=== PATIENT | female | born 1930 | race Caucasian/White ===

== ENCOUNTER 2016-12-22 15:36 | Inpatient (IN) ==
[2016-12-22] MEDS ORDERED: ZOFRAN IV ONE (15:55)
[2016-12-22] MEDS ORDERED: NS 1,000 ML IV ONE (15:55)
[2016-12-22 16:13] LABS: BLOOD TYPE ARTERIAL; DRAW SITE R RADIAL; METHB 1.2 % (0.0-1.5); O2(CT) 16.4 mL/dL (15.0-23.0); PCO2(98.6) 27 mmHg (35-45); PO2(98.6) 76 mmHg (60-100); SAMPLE BLOOD; SAO2 96.2 % (95.0-100.0); THB 12.4 g/dL (11.5-17.4)
[2016-12-22 16:15] LABS: ALLEN TEST YES; MODALITY ROOM AIR
--- NOTE | 2016-12-22 16:16 | EKG Report ---
Test Performed on : 12/22/2016 3:59:15 PM Test Reason : AMS Blood Pressure : / mmHG Vent. Rate : 127 BPM Atrial Rate : 127 BPM P-R Int : 146 ms QRS Dur : 074 ms QT Int : 288 ms P-R-T Axes : 054 263 067 degrees QTc Int : 418 ms Sinus tachycardia. Right superior axis deviation Anterior infarct , age undetermined Abnormal ECG When compared with ECG of 31-DEC-2014 07:49, premature ventricular complexes. are no longer present Vent. rate has increased BY 70 BPM Nonspecific T wave abnormality no longer evident in Inferior leads Nonspecific T wave abnormality no longer evident in Anterolateral leads Unconfirmed Result
--- NOTE | 2016-12-22 16:21 | PROVIDER DOCUMENTATION ---
HPI-Abdominal Pain/GI Problem - General Chief Complaint: Diarrhea Stated Complaint: diarrhea Time Seen by Provider: 12/22/16 15:52 Source: family, EMS, RN notes reviewed Unable to obtain history due to:: altered Allergies/Adverse Reactions: Patient Allergies Allergy/AdvReac Type Severity Reaction Status Date / Time Penicillins Allergy NAUSEA/VOMI Verified 12/31/14 06:52 TING propoxyphene napsylate * Allergy NAUSEA/VOMI Verified 12/31/14 06:52 [From Luis-N] TING Home Medications: Home Medication List Medication Instructions Recorded Confirmed Last Taken Type Amlodipine Besylate [Norvasc] 5 mg PO PCS 10/21/14 12/31/14 12/30/14 21:00 History Calcium 500 mg PO DAILY 10/21/14 12/31/14 12/30/14 14:00 History Furosemide [Lasix] 20 mg PO DAILY 10/21/14 12/31/14 12/30/14 14:00 History Hydrocodone/Acetaminophen [Lortab 1 each PO DAILY 10/21/14 12/31/14 Unknown History 5-325 mg Tablet] Levothyroxine [Synthroid] 100 microgm PO DAILY 10/21/14 12/31/14 12/30/14 05:30 History Metoprolol [Lopressor] 50 mg PO DAILY 10/21/14 12/31/14 12/30/14 08:00 History Potassium Chloride E.r. [Klor-Con] 20 meq PO DAILY 10/21/14 12/31/14 12/30/14 14 :00 History Acetaminophen [Tylenol] 1,000 mg PO Q8H #0 tablet 01/03/15 Unknown Rx Docusate Sodium [Colace] 200 mg PO QHS #0 capsule 01/03/15 Unknown Rx Ferrous Sulfate 325 mg PO WBREAKFAST #0 tablet 01/03/15 Unknown Rx Hydrocodone/Acetaminophen [Taos 1 each PO 4XDAY PRN #10 tablet 01/03/15 Unknown Rx 5-325 Tablet] Magnesium Hydroxide [Milk of 30 ml PO DAILY PRN PRN #0 udc 01/03/15 Unknown Rx Magnesia] Ondansetron [Ondansetron Odt] 4 mg PO 4XDAY PRN #0 tab.rapdis 01/03/15 Unknown Rx - History of Present Illness-ABD Nature of Presenting Problems: patient is a 86 y/o F that presents to the ER with generalized abdominal pain, fever, and diarrhea(at least 5 times a day) x 4 days. patient's daughter reports patient not as verbal as normal. No vomiting or cough. Abdominal Pain Onset Location: reports: generalized abdomen Quality of Pain: reports: aching Severity in ED: reports: moderate, severe Onset/Duration: reports: unsure, other (several days) Timing: reports: still present, constant Activities at Onset: reports: none Modifying Factors: improves with: nothing Associated Symptoms: reports: diarrhea, fever/chills. denies: back/neck pain, chest pain, constipation, EENT symptoms, genitourinary problems, shortness of breath, vomiting Similar Symptoms Previously?: No Recently seen or treated by another doctor?: No Review of Systems - Adult - REVIEW OF SYSTEMS - ADULT ROS:: ROS per family Constitutional: reports: fever. denies: chills Gastrointestinal: reports: abdominal pain, diarrhea. denies: hematemesis, rectal bleeding, vomiting All Other Systems: Reviewed and Negative Past History - Adult - PAST MEDICAL HISTORY-ADULT Review of Records: reports: Old Records Reviewed, Nursing Assessment Review, Medications Reviewed Cardiovascular: reports: HTN Endocrine/Immune: reports: thyroid disorder (hypo) - PRIOR SURGERIES/PROCEDURES Surgical/Procedure History: reports: appendectomy, hysterectomy, back/neck - IMMUNIZATION STATUS Childhood Immunizations: See Nurse Assessment Flu Vaccine: See Nurse Assessment - FAMILY HISTORY Family History: reviewed, not pertinent - SOCIAL HISTORY Smoking: non-smoker Living Situation: care facility Physical Exam-General - PHYSICAL EXAM-ADULT Initial Vital Signs Reviewed: Yes - CONSTITUTIONAL General Appearance: moderate distress, obtunded - EYES Eyes: PERRL/EOMI, pink conjunctivae - HEAD, EARS, NOSE, MOUTH & THROAT HENMT: normocephalic/atraumatic, normal ENT inspection, other (dry oral mucosa) - RESPIRATORY Respiratory: lungs clear, normal breath sounds, no respiratory distress, no accessory muscle use - CARDIOVASCULAR Cardiovascular: no gallop, no murmur, tachycardia - GASTROINTESTINAL (ABDOMEN) Abdominal Exam: no organomegaly, no pulsatile mass, tenderness (generalized) - MUSCULOSKELETAL Extremity: no pedal edema, normal capillary refill, pelvis stable - SKIN Integumentary: warm (to touch). negative: ecchymosis, erythema - PSYCHIATRIC Psych/Mental Status: other (altered, non verbal) Progress - PLAN OF CARE/RESULTS Progress/Plan/Lab Results: plan of care-labs, meds, xray, head ct scan. daughter reports patient is DNR Vital Signs Temp Pulse Resp BP Pulse Ox 12/22/16 15:40 102.0 F H 127 H 24 123/66 97 Penicillins Allergy (Verified 12/31/14 06:52) NAUSEA/VOMITING propoxyphene napsylate * [From Darvocet-N] Allergy (Verified 12/31/14 06:52) NAUSEA/VOMITING Amlodipine Besylate [Norvasc] 5 mg PO PCS 10/21/14 Calcium 500 mg PO DAILY 10/21/14 Furosemide [Lasix] 20 mg PO DAILY 10/21/14 Hydrocodone/Acetaminophen [Lortab 5-325 mg Tablet] 1 each PO DAILY 10/21/14 Levothyroxine [Synthroid] 100 microgm PO DAILY 10/21/14 Metoprolol [Lopressor] 50 mg PO DAILY 10/21/14 Potassium Chloride E.r. [Klor-Con] 20 meq PO DAILY 10/21/14 Acetaminophen [Tylenol] 1,000 mg PO Q8H #0 tablet 01/03/15 Docusate Sodium [Colace] 200 mg PO QHS #0 capsule 01/03/15 Ferrous Sulfate 325 mg PO WBREAKFAST #0 tablet 01/03/15 Hydrocodone/Acetaminophen [Taos 5-325 Tablet] 1 each PO 4XDAY PRN #10 tablet Magnesium Hydroxide [Milk of Magnesia] 30 ml PO DAILY PRN PRN #0 udc 01/03/15 Ondansetron [Ondansetron Odt] 4 mg PO 4XDAY PRN #0 tab.rapdis 01/03/15 Laboratory 12/22/16 12/22/16 12/22/16 17:10 16:50 16:05 PT 14.8 INR 1.13 APTT (Factor Assay) 31.0 Specimen Type Sample Site pH pCO2 pO2 HCO3 Base Excess Oxyhemoglobin ABG O2 Sat (Calculated) ABG O2 Saturation ABG Carboxyhemoglobin ABG Methemoglobin Fazal Test A-a O2 Difference Total Hemoglobin Lactate Blood Gas Modality FiO2 % POC Glucose 114 H Magnesium Urine Source CATH Urine Opiates Screen Ur Oxycodone Screen Urine Methadone Screen Ur Barbituates Screen Ur Tricyclics Screen Ur Phencyclidine Scrn Ur Amphetamines Screen U Methamphetamines Scrn Urine MDMA Screen U Benzodiazepines Scrn Urine Cocaine Screen U Cannabinoids Screen 12/22/16 12/22/16 12/22/16 15:54 15:45 13:15 PT INR APTT (Factor Assay) Specimen Type ARTERIAL Sample Site R RADIAL pH 7.50 H pCO2 27 L pO2 76 HCO3 24.1 Base Excess -1.0 Oxyhemoglobin 94.0 L ABG O2 Sat (Calculated) 16.4 ABG O2 Saturation 96.2 ABG Carboxyhemoglobin 1.20 ABG Methemoglobin 1.2 Fazal Test YES A-a O2 Difference 40.0 Total Hemoglobin 12.4 Lactate 2.50 H Blood Gas Modality ROOM AIR FiO2 % 21.0 POC Glucose Magnesium 2.2 Urine Source Urine Opiates Screen NONE DETECTED Ur Oxycodone Screen NONE DETECTED Urine Methadone Screen NONE DETECTED Ur Barbituates Screen NONE DETECTED Ur Tricyclics Screen NONE DETECTED Ur Phencyclidine Scrn NONE DETECTED Ur Amphetamines Screen NONE DETECTED U Methamphetamines Scrn NONE DETECTED Urine MDMA Screen NONE DETECTED U Benzodiazepines Scrn NONE DETECTED Urine Cocaine Screen NONE DETECTED U Cannabinoids Screen NONE DETECTED Orders Category Date Time Status Cardiac Monitoring DIRECTED Care 12/22/16 15:54 Active Finger Stick Blood Sugar (ED) DIRECTED Care 12/22/16 15:54 Active Oxygen Therapy- ED Nursing DIRECTED Care 12/22/16 15:54 Active Saline Loc NOW Care 12/22/16 15:[address] ABD/PELVIS W/ IV CONT ONLY [CT] Stat Exams 12/22/16 17:44 Ordered HEAD W/O CONTRAST [CT] Stat Exams 12/22/16 15:55 Draft flat [FLAT/UPRIGHT ABD/1 VIEW CHEST] [RAD] Stat Exams 12/22/16 16:03 Draft ABG [RESP] Routine Lab 12/22/16 15:45 Completed BLOOD CULTURE [BLDCUL] Stat Lab 12/22/16 15:56 Ordered CBC WITH ELECTRONIC DIFF [HEME] Stat Lab 12/22/16 17:10 Results CK PROFILE [SP CHEM] Stat Lab 12/22/16 17:10 Received COMPREHENSIVE METABOLIC PANEL [CHEM] Stat Lab 12/22/16 17:10 Received LACTATE, PLASMA [CHEM] Stat Lab 12/22/16 17:10 Received MAGNESIUM [CHEM] Stat Lab 12/22/16 13:[address]IME WITH INR [address] [COAG] Stat Lab 12/22/16 17:[address] [COAG] Stat Lab 12/22/16 17:10 Completed TROPONIN T Stat Lab 12/22/16 17:10 Received URINALYSIS W/POSS RFLX CULT [URINALYSIS] Stat Lab 12/22/16 16:50 Results URINE DRUG SCREEN PL Routine Lab 12/22/16 15:54 Completed 0.9% Sodium Chloride Inj [Ns] 1,000 ml Med 12/22/16 15:55 Discontinued IV 999 mls/hr Acetaminophen [Tylenol] Med 12/22/16 16:53 Discontinued 650 mg .ROUTE .STK-MED ONE Acetaminophen [Tylenol] Med 12/22/16 17:06 Discontinued 650 mg FL NOW ONE Levofloxacin 500 mg/D5w [Levaquin 500 mg/D5w] 100 ml Med 12/22/16 17:43 Active IV NOW Metronidazole 500 mg/Ns [Flagyl 500 mg/Ns] 100 ml Med 12/22/16 17:43 Active IV NOW Ondansetron [Zofran] Med 12/22/16 15:55 Discontinued 4 mg IV NOW ONE Pulse Oximetry Stat Oth 12/22/16 15:54 Active EKG [EKG] Stat Ther 12/22/16 15:54 Draft - EKG 1 Time of EKG reading by physician:: 15:59 EKG Read and Signed by:: Ramesh Gudino EKG Interpretation (*Must complete 3 of following elements*): Abnormal Rate: 127 Rhythm: Sinus tachycardia [place]: right FL Interval: normal ST Wave: non-specific ST changes - XRAY 1 XRAY Study: Chest, Abdomen Impression: Abnormal XRAY Interpretation: LG AMT OF STOOL IN RECTUM - CT/MRI 1 CT Study: Head Impression: Abnormal CT Results: ENCEPHALOMALACIA OLD INFARCT, WHITE MATTER DZ - CONSULTS/PCP/HOSPITALIST Notification #1 *Consult/PCP/Hospitalist*: ( credit control administrator for hospitalist) Time Discussed: 17:42 Reason/Comments: ct abd/pelv, levaquin and flagyl, Consult Disposition: Admit Departure - Departure Time of Disposition Order: 17:46 DIAGNOSIS: Abdominal pain Qualifiers: Abdominal location: generalized Qualified Code(s): R10.84 - Generalized abdominal pain Diarrhea Qualifiers: Diarrhea type: presumed infectious Qualified Code(s): A09 - Infectious gastroenteritis and colitis, unspecified Fever Qualifiers: Fever type: due to other condition Qualified Code(s): R50.81 - Fever presenting with conditions classified elsewhere Sepsis Qualifiers: Sepsis type: sepsis due to unspecified organism Qualified Code(s): A41.9 - Sepsis, unspecified organism Disposition: ADMITTED INPATIENT 09 Certified Medical Emergency: Emergent Condition: Stable Referrals: Andrea Mcmillan [Primary Care Provider] - - Critical Care Note Total Time (mins): 35 Critical Care Statement: This patient required my direct personal management to treat or rule out processes, the absence of which, could potentiallly result in sudden, clinically significant life or limb threatening deterioration. Attestation - Scribe Verification/Attestation Scribe:: Chas Weaver Acting as Scribe for:: Ramesh Gudino Scribe documention review:: This chart was documented by a scribe and accurately reflects the service the provider performed and the decisions made by the provider. Physician Attestation - Physician Attestation I, the provider, attest to the following statement:: Ramesh Gudino Physician documentation Attestation:: This documentation recorded by the scribe accurately reflects the service I personally performed and the decisions made by me.
[2016-12-22] MEDS ORDERED: TYLENOL ONE (16:53)
--- NOTE | 2016-12-22 16:55 | Diag Imaging Result Document ---
PROCEDURE NAME: FLAT/UPRIGHT ABD/1 VIEW CHEST - 12/22/2016 ACUTE ABDOMINAL SERIES: INDICATION: Abdomen pain with fever. COMPARISON: 12/31/2014. FINDINGS: There has been a suboptimal inspiratory result. The pulmonary vasculature is not congested. Lung volumes are reduced. No acute infiltrates or effusions are identified. There is no pneumothorax. There is multilevel vertebroplasty. No free air beneath hemidiaphragm. Supine and erect views of the abdomen reveal a large amount of fecal material within the rectum. No bowel distention is identified. No mass effect. There is a left proximal femoral screw. IMPRESSION: Large amount of fecal material within the rectum. No evidence for obstruction.
[2016-12-22] MEDS ORDERED: TYLENOL PR ONE (17:06)
--- NOTE | 2016-12-22 17:14 | Diag Imaging Result Document ---
PROCEDURE NAME: HEAD W/O CONTRAST - 12/22/[address] SCAN OF THE BRAIN: INDICATION: Altered mental status. History of TIAs. Weakness. FINDINGS: There is marked cerebral atrophy. There is extensive deep white matter hypodensity within the left frontal white matter. There is focal encephalomalacia within the right parietotemporal lobe consistent with old infarct. There is an old lacunar infarct within the left basal ganglia. There is no evidence for acute infarct or hemorrhage. Vascular calcifications are noted. IMPRESSION: 1. Large area of white matter disease, left frontal lobe. 2. Focal encephalomalacia consistent with old infarct, right temporoparietooccipital region. Old left lacunar infarct. No acute infarct or hemorrhage is appreciated.
[2016-12-22] MEDS ORDERED: LEVAQUIN 500 MG/D5W 100 ML IV ONE (17:43)
[2016-12-22] MEDS ORDERED: FLAGYL 500 MG/NS 100 ML IV ONE (17:43)
[2016-12-22 17:44] LABS: UR AMPHETAMINES QUAL NONE DETECTED (NONE DETECT); UR BARBITUATES QUAL NONE DETECTED (NONE DETECT); UR BENZODIAZEPIN QUAL NONE DETECTED (NONE DETECT); UR CANNABINOIDS QUAL NONE DETECTED (NONE DETECT); UR COCAINE QUAL NONE DETECTED (NONE DETECT); UR MDMA QUAL NONE DETECTED (NONE DETECT); UR METHADONE QUAL NONE DETECTED (NONE DETECT); UR METHAMPHETAMINE QUAL NONE DETECTED (NONE DETECT); UR OPIATES QUAL NONE DETECTED (NONE DETECT); UR OXYCODONE QUAL NONE DETECTED (NONE DETECT); UR PCP QUAL NONE DETECTED (NONE DETECT); UR TCA QUAL NONE DETECTED (NONE DETECT)
[2016-12-22 17:45] LABS: INR 1.13 (0.86-1.15); PROTIME 14.8 Seconds (12.1-15.5)
[2016-12-22 17:50] LABS: BASO% 0.2 % (0.0-0.8); HEMATOCRIT 35.7 % (37.0-47.0); HEMOGLOBIN 12.4 g/dL (12.0-16.0); IMM GRAN# 0.27 X1000 (0.0-0.04); IMM GRAN% 1.6 % (0.0-0.5); LYMPH# 0.62 X1000 (1.2-3.4); LYMPH% 3.6 % (20.5-51.1); MANUAL DIFF NEEDED? YES; MCH 33.5 PG (27-31); MCHC 34.7 g/dL (33-37); MCV 96.5 FL (81-99); MONO# 3.82 X1000 (0.11-0.59); MONO% 22.3 % (1.7-9.3); MPV 11.5 FL (7.4-10.4); NEUT% 72.3 % (42.2-75.2); PLT 208 X1000 (130-400)
[2016-12-22 17:56] LABS: CLARITY VERY CLOUDY (CLEAR); COLOR AMBER; GLUCOSE URINE NEGATIVE (NEGATIVE); URINE EPITHELIAL CELLS <10 /HPF (<10); URINE SOURCE CLEAN CATCH; URINE WBC <10 /HPF (<10)
[2016-12-22 17:57] LABS: BILIRUBIN URINE 2+ (NEGATIVE); BLOOD URINE NEGATIVE (NEGATIVE); LEUKOCYTES URINE TRACE (NEGATIVE); NITRITE URINE NEGATIVE (NEGATIVE); PROTEIN URINE TRACE mg/dL (NEGATIVE); SP GRAVITY URINE 1.015; URINE CULTURE PL NEEDED? YES; UROBILINOGEN URINE 2+(4 mg/dL)
[2016-12-22 18:02] LABS: BANDS 5 % (0-1); LYMPHS 10 % (21-51); MONO 11 % (1-9)
[2016-12-22 18:03] LABS: ALBUMIN 3.2 g/dL (3.5-5.0); CALCIUM 9.1 mg/dL (8.8-10.2); TOTAL BILIRUBIN 0.6 mg/dL (0.20-1.00); TOTAL PROTEIN 5.9 g/dL (6.3-8.3)
[2016-12-22] MEDS ORDERED: NS 1,000 ML IV SCH (18:15)
--- NOTE | 2016-12-22 20:47 | HISTORY AND PHYSICAL ---
CHIEF COMPLAINT: Abdominal pain, nausea, vomiting, altered mentation. HISTORY OF PRESENT ILLNESS: This is an 86-year-old female with history of dementia who presents from a senior care with abdominal complaints and diarrhea. She has had that off and on for the last week. She had fever reportedly up to 102, abdominal pain and her mentation today is worse. There has been no vomiting, no cough but she has had overall poor p.o. intake. Workup in the ER reveals acute kidney injury, leukocytosis, possible fecal impaction and evidence of septicemia. The patient is only minimally responsive and has just tenderness to palpation diffusely. In any case patient is admitted for abdominal pain, fever, possible colitis versus diverticulitis versus proctitis. PAST MEDICAL HISTORY: 1. Dementia. 2. Iron-deficiency anemia. 3. Hypothyroidism. 4. Hypertension. No evidence of atrial fibrillation. I think Dr. Mccormick is her regular doctor. 5. CHF. 6. Osteoporosis. 7. Compression fractures. PAST SURGICAL HISTORY: 1. Hysterectomy in 1956. 2. Oophorectomy in 1969. 3. Hemorrhoidectomy in 1970. 4. Fracture of right shoulder with multiple kyphoplasties. 5. Reported appendectomy. ALLERGIES: Penicillin, amitriptyline, prednisone, sulfa, Levaquin, Darvocet and Lortab. SOCIAL HISTORY: She is a retired industrial designer. She is a senior care resident. No smoking. No alcohol. REVIEW OF SYSTEMS: Otherwise negative x10 point review of systems. PHYSICAL EXAMINATION: VITAL SIGNS: Blood pressure 123/66, heart rate 120, respiratory rate 24, temp 102 degrees, saturation 97% on room air. GENERAL: A well-developed female, appears stated age, in mild distress. HEENT: Pupils equal, round, reactive to light. Extraocular movements are intact. Ear, nose and throat examination showed moist mucous membranes. NECK: Supple. CARDIOVASCULAR: Tachy. PULMONARY: Clear to auscultation anteriorly. GASTROINTESTINAL: Soft, diffusely tender, some voluntary guarding. Nondistended. Bowel sounds are positive. EXTREMITIES: No clubbing or cyanosis. LYMPHATICS: No peripheral edema. NEUROLOGICAL EXAMINATION: Nonfocal. She was not alert to her name but she did open her eye. Oriented but did not follow commands or any questions. LABORATORY DATA: White count of 18, hemoglobin and hematocrit 12 and 35, platelets were normal. She had 5% bands, 66% neutrophils, 24% monocytes. Chemistry showed a BUN and creatinine of 65 and 2.1 with a normal of 17 and 0.4. labs were in 2015. Urine showed trace white blood cells really fairly unremarkable. Blood gas: pH 7.5, lactate was 2.5. Urine drug screen was negative. I believe head CT was unremarkable. Abdominal film just showed severe stool in the rectum. Head CT showed old infarcts but no acute areas. Large area of white matter disease in the frontal lobe. ASSESSMENT: This is an 86-year-old female with abdominal pain, diarrhea, fever more concerning for colitis, enteritis, proctitis, diverticulitis. She certainly could have ischemic gut and that is a concern. We are progressing with 1. Abdominal pain. We will progress with a CT scan, start IV antibiotics. Consider surgical consultation if she is not improved although family does not want to be very aggressive. We will work on a bowel regimen and follow. 2. Acute kidney injury. Continue hydration and follow closely. Reportedly has a history of CHF so we have to be very cautious with her fluids, but we will need to continue hydration. She has a Schmid catheter for her I's and O's. 3. Dementia. She is obviously having delirium associated with her sepsis and infection. We will continue to monitor closely. 4. Hypothyroidism. We will check her thyroid function and follow. 5. I discussed with family she is a DNR 1.
[2016-12-22] MEDS ORDERED: FLEET MINERAL OIL ENEMA PR ONE (21:51)
[2016-12-22] MEDS ORDERED: TYLENOL PO PRN (21:51)
[2016-12-22] MEDS ORDERED: FLEET ENEMA PR ONE (21:51)
[2016-12-22] MEDS ORDERED: ZOFRAN IV PRN (21:51)
[2016-12-22] MEDS ORDERED: ATIVAN PO PRN (22:30)
[2016-12-22] MEDS ORDERED: SEROQUEL PO SCH (22:30)
[2016-12-22] MEDS ORDERED: CALMOSEPTINE OINTMENT TOP PRN (22:31)
[2016-12-22] MEDS: NS 1,000 ML IV SCH (22:40)
[2016-12-22 23:15] LABS: UR CREAT RANDOM 160.8 mg/dL (11-20); UR PROT RANDOM 52.6 mg/dL; UR SODIUM < 10 mmoll
[2016-12-23] MEDS: ULTRAM PO SCH ×2 (00:38→06:25)
[2016-12-23] MEDS: FLAGYL 500 MG/NS 100 ML IV SCH ×4 (00:38→20:14)
[2016-12-23] MEDS: PERICOLACE PO SCH ×2 (01:03→20:15)
[2016-12-23] MEDS ORDERED: CARDIZEM IV ONE ×2 (03:27→03:54)
[2016-12-23 03:51] LABS: HEMATOCRIT 35.5 % (37.0-47.0); HEMOGLOBIN 12.1 g/dL (12.0-16.0); MCH 33.1 PG (27-31); MCHC 34.1 g/dL (33-37); MPV 11.5 FL (7.4-10.4); RBC 3.66 XMIL (4.2-5.4)
[2016-12-23 04:10] LABS: POTASSIUM 4.9 mmol/L (3.5-5.1)
--- NOTE | 2016-12-23 04:23 | EKG Report ---
Test Performed on : 12/23/2016 03:22:31 AM Test Reason : Change in rhythm Blood Pressure : / mmHG Vent. Rate : 150 BPM Atrial Rate : 250 BPM P-R Int : 000 ms QRS Dur : 084 ms QT Int : 256 ms P-R-T Axes : 000 -61 089 degrees QTc Int : 404 ms Poor data quality, interpretation may be adversely affected Atrial fibrillation. with rapid ventricular response. Left anterior fascicular block Abnormal ECG When compared with ECG of 22-DEC-2016 15:59, (Unconfirmed) Atrial fibrillation. has replaced Sinus rhythm. Nonspecific T wave abnormality now evident in Lateral leads Confirmed by Mary BAZZI, Fazal Beck ([id number]) on 12/23/2016 8:00:12 PM
[2016-12-23] MEDS ORDERED: CARDIZEM 100 MG/NS 100 ML IV SCH ×2 (04:30→11:53)
[2016-12-23] MEDS: SYNTHROID PO SCH (06:25)
[2016-12-23] MEDS: FERROUS SULFATE PO SCH (08:45)
--- NOTE | 2016-12-23 08:48 | Diag Imaging Result Document ---
PROCEDURE NAME: ABDOMEN/PELVIS W/O CONTRAST - 12/22/2016 CT ABDOMEN AND PELVIS WITHOUT CONTRAST: No contrast administered per request of the referring provider. A dose-reduction protocol was used. COMPARISON: No comparison exam. FINDINGS: There is subsegmental atelectasis of the bilateral lung bases. There are no substantial abnormalities of the liver, spleen, adrenal glands, or pancreas ( other than some pancreatic atrophic changes) identified. The gallbladder is mildly distended but there are no calcified gallstones or gross pericholecystic inflammatory changes identified. There is a small nonobstructing stone at the mid left kidney. There is no substantial hydronephrosis identified. There is some cortical thinning/scarring at the lateral mid right kidney. There are atherosclerotic calcifications noted. There had been previous multilevel kyphoplasties. There is no evidence of bowel obstruction. There is a large amount of retained fecal debris in the upper rectum compatible with massive fecal impaction. There is thickening of the busby of the rectum and there is presacral edema compatible with stercoral proctitis. There is no abscess identified. There is no free air identified. There is no substantial free fluid seen. There is a Schmid catheter in the urinary bladder. IMPRESSION: 1. Massive fecal impaction at upper rectum. Rectal wall thickening and presacral edema compatible with stercoral proctitis. 2. No bowel obstruction. No abscess. No free air. 3. Small nonobstructing stone in the left kidney. The on-call radiologist provided preliminary results at 7:48 p.m. on 12/22/2016. MTDD
[2016-12-23] MEDS ORDERED: KLOR-CON PO SCH (09:00)
[2016-12-23] MEDS ORDERED: LASIX PO SCH (09:00)
[2016-12-23] MEDS: PROZAC PO SCH (10:17)
[2016-12-23] MEDS: LOPRESSOR PO SCH (10:17)
[2016-12-23] MEDS: OCUVITE LUTEIN & ZEAXANTHIN PO SCH ×2 (10:18→20:15)
[2016-12-23] MEDS: NS 1,000 ML IV SCH ×2 (10:19→18:33)
[2016-12-23] MEDS: CALTRATE 600 + D PO SCH ×2 (10:20→20:14)
[2016-12-23] MEDS ORDERED: ULTRAM PO PRN (11:50)
[2016-12-23] MEDS ORDERED: RELISTOR SUBQ ONE (11:50)
--- NOTE | 2016-12-23 12:23 | PROGRESS NOTE ---
DATE: 12/23/2016 SUBJECTIVE: Patient has no focal complaints. She is much more awake and alert today. OBJECTIVE: Blood pressure 128/62, heart rate is actually in the 70s, respiratory rate 20, temperature 98.6 degrees.General: A well-developed female. Much more alert, awake, answering questions. Cardiovascular: Irregularly irregular. Pulmonary: Bilateral breath sounds. Diminished at the bases. GI: Soft, brick tender but no guarding, distended. Bowel sounds present but diminished. Extremities: No clubbing or cyanosis. No lymphatic edema. LABORATORY DATA: White count 14, hemoglobin and hematocrit 12 and 35, platelets 212,000. Chemistries: Creatinine down at 1.9[place] [address], troponins 0.03 TSH of 8.69. PROBLEM LIST: 1. Atrial fibrillation with rapid ventricular response. She developed atrial fibrillation with rapid ventricular response. I am going to try to transition her off her Cardizem today. Her heart rates actually doing pretty well right now, so I am going to go ahead and get an echo and follow. 2. Fecal impaction. We will check her for impaction today, disimpact, continue aggressive bowel regimen. Now that she is tolerating p.o. I am going to give her several medications to get her moving. 3. Stercoral proctitis colitis. We will continue empiric antibiotics. She is on Levaquin and Flagyl, day 2 of both. Stool studies are still pending. She has a few white blood cells. C. difficile is negative. Continue to monitor. 4. Acute kidney injury likely related to dehydration, sepsis. We will continue IV fluids and follow closely. DISPOSITION: Probably out of the ICU tomorrow hopefully. She is a jail patient when released back from the hospital. Greater than 32 minute critical care time for atrial fibrillation with rapid ventricular response and IV Cardizem.
--- NOTE | 2016-12-23 13:29 | CONSULTATION ---
DATE OF CONSULTATION: 12/23/2016 HISTORY OF PRESENT ILLNESS: Patient is admitted with abdominal pain, nausea, vomiting, and has proctitis. Cardiology is consulted for atrial fibrillation of new onset. Ms. Schuster is an 86- year-old lady with history of dementia who is in the senior living. Had diarrhea and abdominal discomfort. She had fever up to 102 with increasing abdominal pain. She was brought to the emergency room and she was noted to have acute kidney injury, leukocytosis, fecal impaction and proctitis. She subsequently went into atrial fibrillation. Was started on a Cardizem drip and is being transitioned to p.o. Cardizem. From a cardiac standpoint, no chest pain, no previous history of atrial fibrillation REVIEW OF SYSTEMS: Gastrointestinal: As above. Cardiovascular: No palpitations. Denies chest pain. Endocrine: Stable. Central nervous system: No focal weakness to suggest a CVA or TIA. PAST MEDICAL HISTORY: Dementia, iron deficiency anemia, hypertension, osteoporosis, compression fractures. PAST SURGICAL HISTORY: Hysterectomy, oophorectomy, hemorrhoidectomy, right shoulder kyphoplasty, appendectomy. ALLERGIES: She is allergic to penicillin, amitriptyline, prednisone, sulfonamides, Levaquin. SOCIAL HISTORY: She is , a retired environmental compliance specialist. She is a senior living resident. Does not smoke. Does not drink. PHYSICAL EXAMINATION: Vital Signs: Blood pressure 120/66. Neck: Normal jugular venous pressure. Heart: First and 2nd heart sounds were heard. There is faint systolic murmur. Lungs: Normal air entry. There is are crepitations or rhonchi. Abdomen: Soft. Diffuse tenderness in the right and left inguinal region. There was no guarding or rigidity. Bowel sounds were heard. Central Nervous System: Was alert, moving all 4 extremities. Detailed central nervous system examination not performed. LABORATORIES: WBC when she came in was 17.12, hemoglobin 12.4, hematocrit 35, platelet count of 208,000. Subsequent WBC was down to 14.14. Chemistry: Sodium 137, potassium 4.9, BUN 68, creatinine 1.8. Cardiac enzymes are negative. CURRENT MEDICATIONS: Cardizem drip, Norvasc 5, ferrous sulfate, Prozac, Lactulose, metoprolol 50 daily, metronidazole IV, Seroquel. ASSESSMENT AND PLAN: Ms. Schuster is an 86-year-old lady who is admitted with fever and abdominal discomfort. Underwent a CT scan which revealed rectal wall thickening compatible with proctitis with massive fecal impaction. From a cardiac standpoint, she went into atrial fibrillation. Her electrolytes are unremarkable. Cardiac enzymes are negative. She is being transitioned to p.o. Cardizem. 1. We will get an echocardiogram to assess cardiac and valvular function. 2. I had a detailed discussion with the patient's daughter. She is apparently a high fall risk and would recommend just continuing with aspirin rather than anticoagulation therapy. The risks and benefits of this were detailed and discussed with the patient's family. 3. She is on Norvasc. She is going to be put on Cardizem. We will discontinue the Norvasc. 4. Proctitis. She has been started on metronidazole. Would recommend continuing medications. Thank you for the consult.
[2016-12-23] MEDS: CARDIZEM PO SCH ×2 (14:46→20:14)
[2016-12-23] MEDS: MIRALAX PO SCH ×2 (14:46→20:15)
[2016-12-23] MEDS ORDERED: NORVASC PO SCH (18:00)
[2016-12-23] MEDS ORDERED: LEVAQUIN 500 MG/D5W 100 ML IV SCH (20:00)
[2016-12-23] MEDS: LACTULOSE PO SCH (20:14)
[2016-12-23] MEDS: SEROQUEL PO SCH (20:15)
--- NOTE | 2016-12-24 00:51 | EKG Report ---
Test Performed on : 12/24/2016 00:45:04 AM Test Reason : rhythm change Blood Pressure : / mmHG Vent. Rate : 071 BPM Atrial Rate : 071 BPM P-R Int : 160 ms QRS Dur : 086 ms QT Int : 426 ms P-R-T Axes : 032 -53 054 degrees QTc Int : 462 ms Normal sinus rhythm. Left anterior fascicular block Abnormal ECG When compared with ECG of 23-DEC-2016 03:22, Sinus rhythm. has replaced Atrial fibrillation. Vent. rate has decreased BY 79 BPM Nonspecific T wave abnormality now evident in Inferior leads Nonspecific T wave abnormality, worse in Anterolateral leads Unconfirmed Result
[2016-12-24] MEDS: FLAGYL 500 MG/NS 100 ML IV SCH ×3 (01:52→15:05)
[2016-12-24] MEDS: CARDIZEM PO SCH ×4 (02:21→22:03)
[2016-12-24] MEDS: NS 1,000 ML IV SCH ×2 (03:49→15:00)
[2016-12-24] MEDS: SYNTHROID PO SCH (06:02)
[2016-12-24 06:51] LABS: HEMATOCRIT 30.4 % (37.0-47.0); HEMOGLOBIN 10.1 g/dL (12.0-16.0); MCH 32.5 PG (27-31); MCHC 33.2 g/dL (33-37); MCV 97.7 FL (81-99); MPV 11.8 FL (7.4-10.4); RBC 3.11 XMIL (4.2-5.4)
[2016-12-24 07:26] LABS: CALCIUM 8.1 mg/dL (8.8-10.2); MAGNESIUM 2.1 mg/dL (1.5-2.7); POTASSIUM 3.6 mmol/L (3.5-5.1)
--- NOTE | 2016-12-24 08:45 | Diag Imaging Result Document ---
PROCEDURE NAME: KUB ABDOMEN - 12/24/2016 AP PORTABLE ABDOMEN, FLAT AND UPRIGHT: FINDINGS: There is a large amount of stool in the rectum. There is gas throughout the colon. There is no evidence of small bowel dilatation. IMPRESSION: Fecal impaction. This was also present on 12/22/2016 and has improved slightly.
[2016-12-24] MEDS: LACTULOSE PO SCH ×2 (09:59→22:09)
[2016-12-24] MEDS: LOPRESSOR PO SCH (09:59)
[2016-12-24] MEDS: PROZAC PO SCH (09:59)
[2016-12-24] MEDS: CALTRATE 600 + D PO SCH ×2 (09:59→22:03)
[2016-12-24] MEDS: FERROUS SULFATE PO SCH (09:59)
[2016-12-24] MEDS: MIRALAX PO SCH ×2 (10:06→22:09)
--- NOTE | 2016-12-24 16:39 | ECHO REPORT ---
ORDER DATE: 12/23/2016 DIAGNOSES: Atrial fibrillation. MEASUREMENTS: Left ventricle end-diastolic diameter: 3.1. Left ventricle end-systolic diameter: 1.4. Septal thickness: 1.2. Posterior wall thickness: 1.2. Left atrium: 3.3. Aortic root diameter: 3.5. SUMMARY: 1. Fair quality study. 2. Mild aortic valve sclerosis demonstrated with normal aortic valve opening evident. Mild mitral annular calcification is demonstrated with trace mitral regurgitation. Tricuspid and pulmonic valves are without structural abnormality with mild tricuspid regurgitation and mild pulmonic insufficiency. Estimated systolic PA pressure by Doppler is 35 mmHg. Aortic root is normal size. 3. Normal left ventricular chamber size with mild concentric left hypertrophy is demonstrated. Estimated left ejection fraction is greater than 75% with left ventricle appearing hyperdynamic. No wall motion abnormalities are evident. Left atrium appears mild-to- moderately enlarged on 2-dimensional images. Right atrium and right ventricle of normal size with grossly preserved right ventricular systolic performance. 4. Trivial posterior pericardial effusion. 5. Atrial fibrillation during study. CONCLUSIONS: 1. Mild aortic valve sclerosis without stenosis. 2. Mild tricuspid regurgitation with mild pulmonary hypertension suggested by Doppler. 3. Mild concentric left hypertrophy with hyperdynamic left ventricle. 4. Mild to moderate left atrial enlargement. 5. Atrial fibrillation during study. cc: MD Kulwinder Sánchez MD
--- NOTE | 2016-12-24 17:51 | PROGRESS NOTE ---
DATE: 12/24/2016 SUBJECTIVE: Patient has no complaints. She is alert today. She denies any chest pain, palpitations. OBJECTIVE: Vital Signs: Blood pressure is 106/51 with a heart rate of 64, respirations are 16, temperature is 97.8 degrees with a room air saturation of 95-96%. Cardiovascular: Irregularly irregular rate and rhythm, S1, S2 appreciated. Pulmonary: Breath sounds are decreased at the bases. No increased work of breathing noted. Gastrointestinal: Abdomen is soft, nontender, nondistended with bowel sounds in all 4 quadrants. Extremities: No clubbing, cyanosis, or edema. Calves are nontender. Pulses are palpable x4. LABS: WBC is 9.4 with hemoglobin 10.1, hematocrit 30.4 and platelets of 168. Sodium is 145, potassium 3.6, BUN 46, creatinine 0.9 with a glucose of 99. TSH is 8.69 with a free T4 of 0.89. ASSESSMENT AND PLAN: 1. Atrial fibrillation with rapid ventricular response. Will continue with Cardizem p.o. Rates have stayed 68 looks like to 82. She is tolerating this well. Echocardiogram read is pending. 2. Fecal impaction. We will give milk and molasses enema and monitor. 3. Stercoral proctitis colitis. Will continue with her empiric antibiotics. She is on Levaquin and Flagyl. This is day 3 of both. 4. Acute kidney injury. This is likely secondary to dehydration and sepsis. It is has resolved. Will continue to follow labs. 5. Will move the patient to the floor later today. Hopefully she can go back to the half-way in the next 2-3 days. Dictated by KELLIE Quintana for Candido Barrett MD cc: KELLIE Quintana MD
[2016-12-24] MEDS: PERICOLACE PO SCH (22:03)
[2016-12-24] MEDS: FLAGYL PO SCH (22:04)
[2016-12-24] MEDS: SEROQUEL PO SCH (22:04)
[2016-12-24] MEDS: OCUVITE LUTEIN & ZEAXANTHIN PO SCH ×2 (22:23→22:51)
[2016-12-25] MEDS: FLAGYL PO SCH ×3 (06:00→22:20)
[2016-12-25] MEDS: SYNTHROID PO SCH (07:00)
[2016-12-25] MEDS: CALTRATE 600 + D PO SCH ×2 (08:11→22:20)
[2016-12-25] MEDS: PROZAC PO SCH (08:11)
[2016-12-25] MEDS: LACTULOSE PO SCH ×2 (08:11→23:21)
[2016-12-25] MEDS: CARDIZEM CD PO SCH (08:11)
[2016-12-25] MEDS: LOPRESSOR PO SCH (08:11)
[2016-12-25] MEDS: MIRALAX PO SCH ×2 (08:11→23:21)
[2016-12-25] MEDS: OCUVITE LUTEIN & ZEAXANTHIN PO SCH ×2 (08:11→22:20)
[2016-12-25] MEDS: FERROUS SULFATE PO SCH (08:11)
--- NOTE | 2016-12-25 10:06 | PROGRESS NOTE ---
DATE: 12/25/2016 SUBJECTIVE: Patient without any new complaints. She is awake, alert. She is confused at times. PHYSICAL EXAMINATION: Vital signs: Temp 99, pulse 88, respiratory 16, BP 163/62. General: The patient is a well-developed elderly female who is currently in no respiratory distress. She is awake, alert. Neck: Supple. CV: Irregular rhythm but rate controlled. Pulmonary: Decreased but equal breath sounds bilaterally. Abdomen: Soft, nondistended. Extremities: Moves all extremities. LABS: Pending. ASSESSMENT: 1. Atrial fibrillation with RVR, currently improving. Will change to p.o. Cardizem 120 this a.m. 2. Fecal impaction. Continue aggressive bowel control. 3. Stercoral proctitis, colitis. Will continue Levaquin and Flagyl. Both have been changed to p.o. 4. Acute kidney injury, resolved. 5. Dehydration, resolved. 6. Sepsis, resolved. 7. Leukocytosis, improving. PLAN: Will saline lock her today. Will discontinue her Schmid. Will continue to get her out of bed, hopefully back to the intermediate on Tuesday. cc: Candido Barrett MD
[2016-12-25] MEDS ORDERED: SALINE LOCK IV FLUID XX ONE ×2 (16:45→21:17)
[2016-12-25] MEDS: CARDIZEM PO SCH (16:47)
--- NOTE | 2016-12-25 17:49 | PROGRESS NOTE ---
DATE: 12/25/2016 CHIEF COMPLAINT: Irregular heartbeat and abdominal pain. SUBJECTIVE: Ms. Schuster is feeling much better. She is not having a whole lot of pain at this time. She is very calm and her rhythm has returned back to sinus. OBJECTIVE: Vital signs: Blood pressure 163/62, pulse 88, temperature 99 degrees, respirations 16. General: She is awake, alert, follows commands. She has some minor resting tremor. She appears to be somewhat pale. Neck: No significant jugular venous distention. Chest: Fairly clear to auscultation and percussion. Cardiac: Heart sounds are regular and rhythmic. I do not hear any gallop or murmur. Abdomen: Nontender. Soft. No masses. No hepatomegaly. Extremities: Show no edema. Neurologic: She moves all four extremities. She has no obvious deficits. IMPRESSION: Patient with paroxysmal atrial fibrillation in the midst of constipation with some sort of fecal impaction and proctitis. RECOMMENDATIONS: At this point, would suggest to continue present medical therapy as suggested by Dr. Mason. Her echocardiogram from December 23 showed normal left ventricular systolic function with ejection fraction of 75% with mild tricuspid regurgitation and moderate atrial enlargement. Her EKG from December 24 showed that she was back in sinus rhythm with no ischemic ST-T changes. cc: Michael Velásquez MD
[2016-12-25] MEDS: SEROQUEL PO SCH (22:10)
[2016-12-25] MEDS: PERICOLACE PO SCH (22:20)
[2016-12-25] MEDS: NS 1,000 ML IV SCH (23:19)
[2016-12-26] MEDS: SYNTHROID PO SCH (06:22)
[2016-12-26] MEDS: FLAGYL PO SCH ×3 (06:22→21:01)
[2016-12-26] MEDS: PROZAC PO SCH (09:43)
[2016-12-26] MEDS: CALTRATE 600 + D PO SCH (09:43)
[2016-12-26] MEDS: FERROUS SULFATE PO SCH (09:43)
[2016-12-26] MEDS: CARDIZEM CD PO SCH (09:44)
[2016-12-26] MEDS: OCUVITE LUTEIN & ZEAXANTHIN PO SCH (09:44)
[2016-12-26] MEDS: LACTULOSE PO SCH ×2 (09:44→21:50)
[2016-12-26] MEDS: MIRALAX PO SCH ×2 (09:44→21:50)
[2016-12-26] MEDS: LOPRESSOR PO SCH (09:44)
--- NOTE | 2016-12-26 10:45 | PROGRESS NOTE ---
DATE: 12/26/2016 SUBJECTIVE: Patient notes she is feeling better. She denies any symptoms. However, she is confused this morning. She is worried that she has not called her place of work and that they will not know that she is not going to be there today. OBJECTIVE: Vital Signs: Temperature 98, pulse 93, respiratory rate 16. BP 175/65 to 128/63. General: The patient is well developed, well nourished. Currently in no real respiratory distress. She is awake, alert. Neck: Supple. CV: Regular rate. Chest: Relatively clear. ASSESSMENT: 1. Atrial fibrillation, currently rate controlled. 2. Fecal impaction. We will recheck KUB. Continue enemas as needed. 3. Stercoral proctitis, improving. 4. Leukocytosis, resolved. PLAN: We will continue to follow. We will continue her home medications, enemas as needed. Hopefully to rehab soon. cc: Candido Barrett MD
--- NOTE | 2016-12-26 11:55 | Diag Imaging Result Document ---
PROCEDURE NAME: KUB ABDOMEN - 12/26/2016 PORTABLE AP SUPINE ABDOMEN: Compared with 12/24/2016. FINDINGS: There has been apparent interval resolution of the rectal fecal impaction since the previous exam. There is gaseous distention of portions of colon and rectum which is decreased. There is no substantial gaseous small-bowel distention identified. IMPRESSION: Interval resolution of rectal fecal impaction. Some decrease in gaseous distention of colon.
[2016-12-26] MEDS: SEROQUEL PO SCH (20:58)
[2016-12-26] MEDS: PERICOLACE PO SCH (21:51)
[2016-12-27 03:10] LABS: OCCULT BLOOD 1 POSITIVE (NEGATIVE)
[2016-12-27 05:39] LABS: HEMATOCRIT 31.8 % (37.0-47.0); HEMOGLOBIN 10.5 g/dL (12.0-16.0); MCH 32.3 PG (27-31); MCV 97.8 FL (81-99); MPV 10.6 FL (7.4-10.4); RBC 3.25 XMIL (4.2-5.4)
[2016-12-27 06:03] LABS: AGAP 8; ALBUMIN 2.5 g/dL (3.5-5.0); ALKALINE PHOSPHATASE 103 U/L (32-104); BUN 13 mg/dL (8-22); CALCIUM 7.7 mg/dL (8.8-10.2); CHLORIDE 109 mmol/L (98-107); COSMO 285; GOT 22 U/L (10-30); GPT 12 U/L (10-36); MAGNESIUM 1.6 mg/dL (1.5-2.7); POTASSIUM 2.7 mmol/L (3.5-5.1); SODIUM 143 mmol/L (136-145); TCO2 26 mmol/L (25-35); TOTAL PROTEIN 4.1 g/dL (6.3-8.3)
[2016-12-27] MEDS: SYNTHROID PO SCH (06:32)
[2016-12-27] MEDS: FLAGYL PO SCH ×3 (06:32→22:10)
[2016-12-27] MEDS ORDERED: POTASSIUM CHLORIDE 40 MEQ/SWI 40 MEQ/100 ML IVPB IV ONE (06:43)
[2016-12-27] MEDS: POTASSIUM CHLORIDE 20 MEQ/SWI 20 MEQ/100 ML IVPB IV SCH ×2 (07:41→11:08)
[2016-12-27] MEDS: FERROUS SULFATE PO SCH (07:41)
--- NOTE | 2016-12-27 07:52 | Diag Imaging Result Document ---
PROCEDURE NAME: KUB ABDOMEN - 12/27/2016 KUB: FINDINGS: There is marked osteopenia with kyphoplasty T12 through L5. There is gas in the colon including the rectum. There is no evidence of small bowel or gastric distention. Fecal impaction which was present on 12/24/2016 is no longer present. IMPRESSION: Nonspecific abdomen.
--- NOTE | 2016-12-27 08:13 | PROGRESS NOTE ---
DATE: 12/27/2016 SUBJECTIVE: Patient without any new complaints. OBJECTIVE: Vital Signs: Reviewed. Temperature 98 degrees, pulse 79, respiratory 18, BP 153/62. General: The patient is a well-developed female who is currently in no respiratory distress. She is awake, alert, but disoriented. This is her baseline. Neck: Supple. CV: Regular rate. Chest: Relatively clear. Abdomen: Soft nondistended. Extremities: Moves all extremities. LABS: Hemoglobin and hematocrit are stable at 10 and 31. Potassium 2.7, calcium 7.7, albumin 2.5. She is heme positive. ASSESSMENT: 1. Lower gastrointestinal bleed. Likely secondary to colitis. She currently is on antibiotics. 2. Anemia of chronic disease. Her anemia has not changed during the hospital stay after rehydration. 3. Hypokalemia. Will replace. 4. Hypocalcemia, replace. 5. Moderate protein calorie malnutrition. 6. Dementia. PLAN: We will continue patient in the hospital today. Will recheck her labs in the a.m. Replace her potassium and her calcium. Continue to follow. Hopefully to rehab in the a.m. if her labs are stable. cc: Candido Barrett MD
[2016-12-27] MEDS: CARDIZEM CD PO SCH (11:08)
[2016-12-27] MEDS: PROZAC PO SCH (11:08)
[2016-12-27] MEDS: LACTULOSE PO SCH (11:09)
[2016-12-27] MEDS: LOPRESSOR PO SCH (11:09)
[2016-12-27] MEDS: MIRALAX PO SCH ×2 (11:09→22:11)
[2016-12-27] MEDS: SEROQUEL PO SCH (22:10)
[2016-12-27] MEDS: PERICOLACE PO SCH (22:10)
[2016-12-28 06:04] LABS: HEMATOCRIT 30.2 % (37.0-47.0); HEMOGLOBIN 10.2 g/dL (12.0-16.0); MCH 32.9 PG (27-31); MCHC 33.8 g/dL (33-37); MCV 97.4 FL (81-99); RBC 3.1 XMIL (4.2-5.4)
[2016-12-28] MEDS: FLAGYL PO SCH ×2 (06:24→13:52)
[2016-12-28] MEDS: SYNTHROID PO SCH (06:24)
[2016-12-28 06:37] LABS: AGAP 7; ALBUMIN 2.4 g/dL (3.5-5.0); ALKALINE PHOSPHATASE 111 U/L (32-104); BUN 15 mg/dL (8-22); CALCIUM 7.8 mg/dL (8.8-10.2); CHLORIDE 109 mmol/L (98-107); COSMO 284; GOT 26 U/L (10-30); GPT 14 U/L (10-36); MAGNESIUM 1.7 mg/dL (1.5-2.7); SODIUM 142 mmol/L (136-145); TCO2 26 mmol/L (25-35); TOTAL PROTEIN 4.2 g/dL (6.3-8.3)
[2016-12-28] MEDS ORDERED: KLOR-CON PO ONE (07:41)
[2016-12-28] MEDS: PROZAC PO SCH (09:08)
[2016-12-28] MEDS: LOPRESSOR PO SCH (09:08)
[2016-12-28] MEDS: MIRALAX PO SCH (09:08)
[2016-12-28] MEDS: FERROUS SULFATE PO SCH (09:08)
[2016-12-28] MEDS: CARDIZEM CD PO SCH (09:10)
[2016-12-28 11:30] VITALS: BP 165/73
--- NOTE | 2016-12-28 12:24 | DISCHARGE SUMMARY ---
ADMISSION DATE: 12/22/2016 DISCHARGE DATE: 12/28/2016 DIAGNOSES: 1. Stercoral proctitis, colitis. 2. Lower gastrointestinal bleed likely secondary to colitis. 3. Anemia of chronic disease. 4. Acute kidney injury resolved. 5. Sepsis resolved. 6. Atrial fibrillation with rapid ventricular rate controlled. 7. Hypothyroid. 8. Hypertension. 9. Osteoporosis. 10. Dementia. DIAGNOSTICS: 1. 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 No acute infarct or hemorrhage is appreciated. 2. 12/22/2016 abdominal x-ray revealed a large amount of fecal matter within the rectum. No evidence for obstruction. 3. 12/22/2016 CT of the abdomen and pelvis, the massive fecal impaction at the upper rectum, rectal wall thickening, compatible with stercoral proctitis. No bowel obstruction. No abscess. No free air. 4. 12/23/2016 echocardiogram revealed mild aortic valve sclerosis without stenosis. Mild tricuspid regurgitation with mild pulmonary hypertension, concentric left hypertrophy and hyperdynamic left ventricle with EF of 75% with moderate atrial enlargement, atrial fibrillation. 5. 12/24/2016 abdominal x-ray revealed fecal impaction. Slightly improved. 6. 12/27/2016 abdominal x-ray reveals nonspecific abdomen fecal impaction is no longer present. MICROBIOLOGY: Blood cultures are negative. No growth after 5 days. Stool for white blood cells revealed few. Stool culture revealed no Salmonella, Shigella, Campylobacter or E. coli. CONSULTS: Dr. Velásquez, Cardiology. HOSPITAL COURSE: Ms. Schuster presented to the emergency room with abdominal pain and diarrhea off and on for a week with fevers reportedly up to 102 and altered mental status. She was found to have a fecal impaction with proctitis. She was treated with Flagyl and Levaquin. Her fecal impaction has resolved. She did have a positive occult blood stool although she had no black or bloody stools. H and Hs have been stable at 10-12 and 30-35. This is most likely secondary to her proctitis. She did have quite a large impaction, multiple enemas to pass which would certainly irritate this area. We will discharge on a bowel regimen and as she has had no black or bloody stools with a stable hemoglobin and hematocrit we will set up outpatient followup with GI. She was in acute kidney injury on admission. This was most likely secondary to dehydration. After gentle hydration creatinine went from 2.1 and down to 0.5, the last 2 days. White count was 18 on admission which as stated before, she was covered with Levaquin and Flagyl with blood cultures and stool cultures negative. Her white count has been 8-10 over the last 5 days. She has remained afebrile. We did trend electrolytes and treat as appropriate. During the hospitalization she subsequently went into atrial fibrillation with rapid ventricular response. She was placed on a Cardizem drip and transitioned to p.o. Cardizem. Once converted she has remained in sinus rhythm with rates in the 70s to 80s. During the hospitalization, Ms. Schuster just stopped swallowing. She would swallow with much encouragement. A speech evaluation with swallow study was performed which revealed no overt signs or symptoms of airway penetration with swallowing or afterwards. She complained of midsternal pain and the feeling that food and liquid were hanging. She also reported a long history of gastroesophageal reflux disease. Swallow study was normal. It was recommended that the patient have PPIs to reduce gastric acid production with a GI followup. DISCHARGE ASSESSMENT: Cardiovascular: Regular rate and rhythm. S1 and S2 are appreciated. Pulmonary: Breath sounds are clear with no increased work of breathing noted. Gastrointestinal: Abdomen is soft, nontender, nondistended. Bowel sounds in all 4 quadrants. Extremities: No clubbing, cyanosis, or edema. Calves nontender. Pulses are palpable x4. Skin: Warm and dry. Neurologic: She is awake and alert. She is disoriented and according to her family she is at her baseline. Vital Signs: Blood pressure is 162/73, heart rate 65, respirations 16, temperature 98.6 degrees oral with room air sats 95-98%. DISCHARGE ACTIVITY: As per physical therapy and facility protocol. DISCHARGE DIET: Mechanical soft with Ensure supplements with meals and at bedtime. DISCHARGE MEDICATIONS: Cardizem CD 120 mg p.o. daily. Ferrous sulfate 325 with breakfast. Prozac 10 daily. Synthroid 100 mcg daily. Ativan 1 mg p.o. b.i.d. p.r.n. Lopressor 50 mg p.o. daily. Flagyl 500 mg p.o. q.8h hours. MiraLAX 17 g p.o. b.i.d. Seroquel 50 mg at bedtime. Preservation soft gel 1 b.i.d. Norvasc 5. Ultram 50 mg p.o. q.8 hours as prehospitalization. Lasix 20 mg daily. Lactulose 30 mL p.o. b.i.d. p.r.n. FOLLOWUP: She is to follow up her primary care physician Dr. Mccormick in 1-2 weeks. At this time it can be discussed for GI followup for gastroesophageal reflux disease as well as colitis proctitis and positive stool for guaiac. She is being discharged to rehab in stable condition with family members present. This is a greater than 30 minute discharge. Dictated by KELLIE Quintana for Candido Barrett MD cc: KELLIE Quintana MD
== END 2016-12-28 14:50 ==
LOC: P.ED 15:36 → P.MEDSURG 15:37 → SUATTDRO 15:37 → P.ICU 12-23 04:36 → P.MEDSURG 12-24 19:26
PROVIDERS: ATTEND Family Medicine

== ENCOUNTER 2020-01-09 12:51 | Inpatient (IN) ==
[~2020-01-09 12:51] MED LIST: ATROPINE IV ONE
[2020-01-09] MEDS ORDERED: GLUCAGON IV ONE (12:52)
[2020-01-09] MEDS ORDERED: NS 1,000 ML IV ONE (12:53)
[2020-01-09] MEDS ORDERED: CALCIUM CHLORIDE 1 GM in NS 100 ML IV ONE (12:54)
[2020-01-09] MEDS ORDERED: STERILE WATER INJ. ONE (13:02)
[2020-01-09] MEDS: [UNRECOGNIZED DRUG - OTHER] IV SCH ×3 (13:10→13:40)
[2020-01-09] MEDS: DOPAMINE IV SCH ×3 (13:10→13:40)
[2020-01-09 13:39] LABS: AGAP 13; ALKALINE PHOSPHATASE 108 U/L (32-104); BUN 27 mg/dL (8-22); CALCIUM 9.3 mg/dL (8.8-10.2); CHLORIDE 105 mmol/L (98-107); COSMO 287; CREATININE 0.8 mg/dL (0.5-0.9); ESTIMATED GFR > 60; GLUCOSE 144 mg/dL (70-104); GOT 22 U/L (10-30); GPT 15 U/L (10-36); POTASSIUM 4.7 mmol/L (3.5-5.1); SODIUM 140 mmol/L (136-145); TCO2 22 mmol/L (25-35); TOTAL PROTEIN 6.7 g/dL (6.3-8.3)
[2020-01-09] MEDS ORDERED: EPINEPHRINE 4 MG in NS 250 ML IV SCH (14:00)
[2020-01-09] MEDS ORDERED: ATIVAN IV ONE (14:13)
--- NOTE | 2020-01-09 14:13 | Diag Imaging Result Doc PS360 ---
EXAM: CHEST-PORTABLE HISTORY: bradycardia TECHNIQUE: Single view COMPARISON: 02/07/2017 FINDINGS: Poor inspiratory effort. The heart is borderline mildly prominent. The vessels are not distended. There are no infiltrates. No effusion identified. There are multiple vertebra containing cement. IMPRESSION: Stable chest Electronically signed by Yobany Disla 01/09/2020 2:11 PM
[2020-01-09] MEDS ORDERED: ZOFRAN IV ONE (14:14)
[2020-01-09] MEDS ORDERED: DILAUDID IV ONE (14:14)
--- NOTE | 2020-01-09 15:01 | EKG Report ---
Test Performed on : 01/09/2020 12:42:43 PM Test Reason : ER Blood Pressure : / mmHG Vent. Rate : 028 BPM Atrial Rate : 072 BPM P-R Int : 000 ms QRS Dur : 108 ms QT Int : 660 ms P-R-T Axes : 000 -31 020 degrees QTc Int : 449 ms Undetermined rhythm Left axis deviation Anterolateral infarct , age undetermined Abnormal ECG No previous ECGs available Unconfirmed Result
--- NOTE | 2020-01-09 16:10 | PROVIDER DOCUMENTATION ---
This chart was entered by Michelle Palacios Scribe, acting as scribe for Ros Tsai MD. HPI-Neurological Disorder - General Chief Complaint: Altered Mental Status Stated Complaint: AMS Time Seen by Provider: 01/09/20 12:56 Source: family ([facility]), EMS, [facility] records Allergies/Adverse Reactions: Patient Allergies Allergy/AdvReac Type Severity Reaction Status Date / Time amitriptyline Allergy Unknown Verified 02/07/17 08:12 hydrocodone bitartrate * Allergy Unknown Verified 02/07/17 08:12 [From Lortab] levofloxacin [From Levaquin] Allergy Unknown Verified 02/07/17 08:12 morphine Allergy Unknown Verified 02/07/17 08:12 Penicillins Allergy HIVES Verified 02/07/17 08:12 propoxyphene napsylate * Allergy Unknown Verified 02/07/17 08:12 [From Darvocet-N] Sulfa (Sulfonamide Allergy Unknown Verified 02/07/17 08:12 Antibiotics) prednisone AdvReac Unknown Verified 02/07/17 08:12 Home Medications: Home Medication List Medication Instructions Recorded Confirmed Last Taken Type Amlodipine Besylate [Norvasc] 5 mg PO PCS 10/21/14 01/09/20 12/21/16 History Furosemide [Lasix] 20 mg PO DAILY 10/21/14 01/09/20 12/22/16 History Metoprolol [Lopressor] 50 mg PO DAILY 10/21/14 01/09/20 12/22/16 History Potassium Chloride E.r. [Klor-Con] 20 meq PO DAILY 10/21/14 01/09/20 12/22/16 History Quetiapine Fumarate [Seroquel] 50 mg PO QHS 12/22/16 01/09/20 12/21/16 History Diltiazem C.d. [Cardizem Cd] 120 mg PO DAILY #30 capsule 12/24/16 01/09/20 Unknown Rx Mirtazapine [Remeron] 15 mg PO QHS 02/07/17 01/09/20 Unknown History Famotidine [Pepcid] 20 mg PO DAILY 01/09/20 01/09/20 Unknown History Levothyroxine Sodium 125 mcg PO DAILY@0500 01/09/20 01/09/20 Unknown History Melatonin/Pyridoxine HCl (B6) 1 ea PO QHS 01/09/20 01/09/20 Unknown History [Melatonin 5 mg Tablet] Polyethylene Glycol 3350 [Miralax] 17 gm PO EVERY OTHER DAY PRN PRN 01/09/20 01/09/20 Unknown History Sennosides/Docusate Sodium 1 ea PO DAILY 01/09/20 01/09/20 Unknown History [Senokot-S Tablet] Sertraline [Zoloft] 50 mg PO DAILY 01/09/20 01/09/20 Unknown History Tramadol [Ultram] 50 mg PO Q6HR PRN 01/09/20 01/09/20 Unknown History - History of Present Illness-Neuro Nature of Presenting Problem: 89yowf presents to ED by EMS from [facility] where she resides cc syncope, decreased blood pressure, decreased pulse, lethargy and AMS according to EMS and [place] records. [place] records that were sent with pt report she is normally A&Ox3, can walk, talk normally and is continent of urine. She has hx of Dementia and Afib. Her blood pressure is 70/58 and pulse is 28, and she is lethargic upon exam. Onset/Duration: reports: this morning Timing: reports: still present Context: reports: falling Character of Altered Mental Status: reports: disoriented, confused, decreased responsiveness Any recent trauma/injury?: reports: none Character of Deficits: reports: new weakness, impaired speech, falling New weakness or altered sensation location:: reports: general (diffuse) Cognitive Baseline: alert, oriented x3 Associated Symptoms: reports: weakness Similar Symptoms Previously?: No Recently seen or treated by another doctor?: No Review of Systems - Adult - REVIEW OF SYSTEMS - ADULT ROS:: ROS per [facility] records and [facility] Constitutional: reports: see HPI. denies: chills, fever, fatique Eyes: reports: no symptoms reported Ears, Nose, Mouth & Throat: reports: no symptoms reported Cardiovascular: reports: see HPI, other (low blood pressure and pulse) Respiratory: reports: no symptoms reported Gastrointestinal: reports: no symptoms reported Genitourinary: reports: no symptoms reported Musculoskeletal: reports: no symptoms reported Integumentary: reports: no symptoms reported Neurological: reports: see HPI, syncope, other (AMS and lethargy) Psychiatric: reports: no symptoms reported Endocrine: reports: no symptoms reported Hematologic/Lymphatic: reports: no symptoms reported Allergic/Immunologic: reports: no symptoms reported All Other Systems: Reviewed and Negative Past History - Adult - PAST MEDICAL HISTORY-ADULT Review of Records: reports: Nursing Assessment Review, Medications Reviewed, Social history reviewed & non-contributory. Major Childhood Illnesses: reports: denies history Cardiovascular: reports: HTN Respiratory: reports: denies history Gastrointestinal: reports: denies history Obstetrical/Gynecological: reports: denies history Genitourinary: reports: denies history Musculoskeletal: reports: denies history Neurological: reports: denies history Endocrine/Immune: reports: thyroid disorder (hypo) Other Conditions: reports: denies history - PRIOR SURGERIES/PROCEDURES Surgical/Procedure History: reports: appendectomy, hysterectomy, back/neck - IMMUNIZATION STATUS Childhood Immunizations: See Nurse Assessment Flu Vaccine: See Nurse Assessment - FAMILY HISTORY Family History: reviewed, not pertinent Physical Exam- Neurological - Physical Exam-Neuro Initial Vital Signs Reviewed: Yes General Appearance: alert, no apparent distress, lethargic. negative: anxious Eye Exam: bilateral eye: normal inspection, PERRL HENMT: normocephalic/atraumatic, moist mucous membranes Head Injury: no evidence of injury Neck: supple Respiratory: chest non-tender, lungs clear, normal breath sounds. negative: stridor, wheezing Cardiovascular: normal peripheral pulses, bradycardia. negative: tachycardia Abdominal Exam: normal bowel sounds, non tender, soft. negative: guarding Extremity: normal inspection. 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 negative: diaphoresis, jaundice Psych/Mental Status: normal mood/affect. negative: anxious - Glascow Coma Scale Best Eye Response: (4) open spontaneously Best Verbal Response: (5) oriented Best Motor Response: (6) obeys commands Total Glascow Score: 15 Progress - PLAN OF CARE/RESULTS Progress/Plan/Lab Results: Orders Category Date Time Status Saline Loc NOW Care 01/09/20 12:51 Completed CHEST-PORTABLE [RAD] Stat Exams 01/09/20 12:51 Completed COMPREHENSIVE METABOLIC PANEL [CHEM] Stat Lab 01/09/20 13:08 Completed Atropine Med 01/09/20 12:48 Discontinued 0.4 mg IV NOW ONE Dopamine 800 mg/D5w Med 01/09/20 13:00 Discontinued 400 mg in 250 ml IV As Directed mls/hr 1245....Dr. Tsai spoke with daughter, Rahel/KIRIT,over the phone, at length about the need for pt to be transferred to [facility] for pacemaker placement due to her low pulse and daughter reported she will talk with other family members and let him know of their decision. She is a DNR according to paperwork sent with her and her daughter confirmed this. 1332...Dr. Tsai talked with daughter, Rahel, again and she advised to have pt transferred for pacemaker but doesn't want CPR done. 1406...Dr. Tsai spoke with daughter, Rahel, and explained that [facility] transfer center and Dr. Renee wanted pt to go ER-ER, have COVID-19 testing, be intubated and have DNR sent with pt to [facility] and no visitors will be allowed in ICU there, daughter refused this plan. 1414...Dr. Tsai spoke with daughterRahel, again and she decided for pt to be admitted to either [place] or [place] with epi drip and she will come to bedside 1543...Dr. Barrett at bedside speaking with daughterRahel. Result Diagrams: 01/09/20 13:08 - REASSESSMENT Reassessment #1 Time Reassessed: 13:25 Status: worsening (I spoke with daughter that the option about pace maker, she wanted patient transfer to [place]. she stated that no CPR if patient went into cardiac arrest,) - EKG 1 Time of EKG reading by physician:: 13:12 EKG Read and Signed by:: Ros Tsai EKG Interpretation (*Must complete 3 of following elements*): Abnormal (anterolateral infarct, age undetermined) Rate: 28 Rhythm: Undetermined Rhythm [place]: left QRS: normal MA Interval: normal - XRAY 1 XRAY: Bilateral XRAY Study: Chest Impression: See EMR Report (IMPRESSION: Stable chest Electronically signed by Yobany Disla 01/09/2020 2:11 PM) - CONSULTS/PCP/HOSPITALIST Notification #1 *Consult/PCP/Hospitalist*: Transfer Center HH Time Discussed: 13:33 Consult Disposition: other (will consult with Cardiology and return call) #2 Consult: Transfer Center HH Time Discussed: 14:04 Consult Disposition: other (ER to ER and Dr Friend will see patient as consult if pt is transferred but he wants pt to have COVID-19 testing, have DNR with he r, be intubated and will not allow visitors in ICU at [facility].) #3 Consult: Dr. Barrett Time Discussed: 14:40 Consult Disposition: Admit (Pt will be transferred to [facility]) Departure - Departure Date of Disposition Decision: 01/09/20 Time of Disposition Decision: 18:55 DIAGNOSIS: Bradycardia Syncope Qualifiers: Syncope type: unspecified Qualified Code(s): R55 - Syncope and collapse Disposition: ADMITTED INPATIENT 09 Certified Medical Emergency: Emergent Condition: Critical - Critical Care Note This patient required my direct & personal management of CC.: Yes Total Time (mins): 60 Critical Care Statement: This patient required my direct personal management to treat or rule out processes, the absence of which, could potentiallly result in sudden, clinically significant life or limb threatening deterioration. Attestation - Physician/ ELIESER Attestation Patient care was provided by Advanced Practice Provider:: No The physician spent face to face time with patient:: Yes Advanced Practice Provider documentation review:: Supervising physician onsite and consulted in the evaluation and care of this patient. The physician did have a face to face encounter with the patient. This chart was documented by the indicated scribe, (Michelle Palacios Scribe) and accurately reflects the services I performed and decisions made by me, Ros Tsai MD, as attested by the provider's signature.
[2020-01-09] MEDS ORDERED: DILAUDID IV PRN (16:12)
--- NOTE | 2020-01-09 18:57 | HISTORY AND PHYSICAL ---
CHIEF COMPLAINT: Altered mental status. HISTORY OF PRESENT ILLNESS: Patient is an 89-year-old female who lives at [facility] due to chronic dementia. She apparently had an episode of syncope, low blood pressure, decreased heart rate, lethargy and was brought to the emergency department. Normally she is alert and awake, although she is not oriented. Her daughter notes that she has had dementia for the past 5 years, but is able to talk, although does not typically answer questions correctly. Upon arrival to the ER, blood pressure was 70/58, pulse was 28. ALLERGIES: Amitriptyline, Lortab, Levaquin, penicillin causing hives, Darvocet, sulfa antibiotics and prednisone. MEDICATIONS: Norvasc 5, Lasix 20, Synthroid 100, Lopressor 50, potassium 20. REVIEW OF SYSTEMS: Unobtainable from Ms. Schuster. However, after talking to the daughter, she notes that she is normally confused and disoriented but able to converse. Normally is able to feed herself. Currently, she is disoriented, confused, decreased responsiveness. She has generalized weakness. No current focal weakness. The daughter denies any knowledge of GI or issues, any fevers, chills, cough, or recent congestion. PAST MEDICAL HISTORY: Hypertension, hypothyroidism, dementia, history of appendectomy, hysterectomy and back surgery. FAMILY HISTORY: Noncontributory. SOCIAL HISTORY: Patient does not smoke or drink. She is a resident at a intermediate for the past several years. PHYSICAL EXAM: Temp 98, pulse 27, respiratory 17, BP 70s, currently pulse is 60s, blood pressure is 115. Sat 98% on room air. HEENT: Normocephalic. NECK: Supple. CARDIOVASCULAR: Bradycardia, no murmurs. CHEST: Decreased but equal. No current wheezing. ABDOMEN: Soft, nondistended. EXTREMITIES: Moves all extremities. NEURO: Unable to assess due to patient's altered mental status. LABS: Reviewed. ASSESSMENT: 1. Symptomatic bradycardia. 2. Hypotension. 3. DNR (Do not resuscitate). 4. Dementia. 5. Previous history of high blood pressure. PLAN: We are going to admit patient to the hospital. The family has declined further intervention, i.e. intubation, pacemaker, etc. The patient currently is on pressor agents. The family has declined to continue this as well. We are going to admit her to the hospital for comfort care measures. ADDENDUM: 25 minutes was spent in discussion with the daughter regarding DNR status. Regarding intubation, IV fluids, continuing pressors, pacemaker, etc. The daughter notes that Ms. Schuster has had severe dementia for the past several years and continues to decline. Half the time does not recognize the daughter or the family. States she has been talking to her and sisters for the past year. Ms. Schuster's daughter notes that she understands that this will not improve the current situation and therefore has declined to go further with pacemaker, intubation. Also has declined to go further with pressor agents. Therefore, those will be stopped and we will place Ms. Mehta under comfort care measures and DNR level 1. cc: Candido Barrett MD
[2020-01-09] MEDS ORDERED: NS ONE (22:00)
[2020-01-09] MEDS ORDERED: EPINEPHRINE SYRINGE ONE (22:00)
[2020-01-09] MEDS ORDERED: ATROPINE SYRINGE ONE (22:00)
[2020-01-09] MEDS ORDERED: CALCIUM CHLORIDE SYRINGE ONE (22:00)
[2020-01-10] MEDS: ATIVAN IV PRN (19:50)
--- NOTE | 2020-01-11 00:44 | PROGRESS NOTE ---
DATE: 01/10/2020 SUBJECTIVE: Patient has tremendously improved this morning. Upon entering the room, I spoke to her saying good morning. She replied good morning. PHYSICAL EXAMINATION: Vital Signs: Reviewed. Temperature 97.5 degrees, pulse 75, respiratory rate 18, BP 142/67. General: Patient is awake, pleasant. No distress. HEENT: Normocephalic. Neck: Supple. Cardiovascular: Regular rate. No murmurs. Chest: Clear and nonlabored. Abdomen: Soft, nondistended, nontender. Extremities: Moves all extremities. Neurologic: Patient is awake, alert, but confused, disoriented. Appears to be her baseline. She is much more pleasant to talk with today and does attempt to answer some questions. ASSESSMENT: 1. Symptomatic bradycardia. Heart rates are much improved at 75. 2. Hypotension. Blood pressures actually are improving at 142, although we have not restarted Lasix, or her Norvasc or Lopressor. 3. Hypothyroidism. 4. Do Not Resuscitate. PLAN: We are going to continue patient in the hospital. She has tremendously improved today compared to yesterday. Possibly could discharge back to rehab tomorrow if they will take her. cc: Candido Barrett MD
[2020-01-11] MEDS: PEPCID PO SCH (09:27)
--- NOTE | 2020-01-11 21:38 | PROGRESS NOTE ---
DATE: 01/11/2020 SUBJECTIVE: Patient is much more alert today. She spoke hello, denies any current pain. PHYSICAL EXAM: Temp 95, pulse 58, respiratory rate 18, BP 154/54, saturating 98% on room air.General: Patient is awake, pleasant. She is in no current respiratory distress. HEENT: Normocephalic. Neck: Supple. Cardiovascular: Regular rate. No murmurs. Chest clear, nonlabored. Abdomen: Soft, nondistended. Extremities: Moves all extremities. ASSESSMENT: 1. Symptomatic bradycardia, likely multifactorial. She was on Lortab recently. She was on Lopressor and Cardizem. 2. Volume depletion, resolved. 3. Hypotension, resolved. 4. DNR. 5. Dementia. PLAN: We will continue patient in the hospital. We will slowly adjust her blood pressure medications as needed. We will continue to follow. cc: Candido Barrett MD
[2020-01-11] MEDS: REMERON PO SCH (21:44)
[2020-01-11] MEDS: ATIVAN IV PRN (21:45)
[2020-01-12] MEDS ORDERED: SYNTHROID PO SCH (05:00)
[2020-01-12] MEDS: SYNTHROID PO SCH ×2 (05:17)
--- NOTE | 2020-01-12 10:15 | PROGRESS NOTE ---
DATE: 01/12/2020 SUBJECTIVE: Patient has no complaints. OBJECTIVE: Vital Signs Reviewed: On physical examination, temperature 97.7 degrees, pulse 83, respiratory rate 18, BP 174/77. General: Patient is awake, pleasant. She is in no current respiratory distress. HEENT: Normocephalic. Neck: Supple. Cardiovascular: Regular rate. No murmurs. Chest: Clear, nonlabored. Abdomen: Soft, nondistended. Extremities: Moves all extremities. ASSESSMENT: 1. Bradycardia, resolved. Most likely this was secondary to Cardizem and metoprolol. 2. Volume depletion, resolved. 3. Hypotension, resolved. 4. Do not resuscitate. 5. Dementia. 6. Hypertension. PLAN: The patient previously was on Norvasc 5 mg, which we will restart. She was also on Cardizem and metoprolol, which we will continue to hold for now. cc: Candido Barrett MD
[2020-01-12] MEDS: PEPCID PO SCH (18:10)
[2020-01-12] MEDS: NORVASC PO SCH (18:10)
[2020-01-12] MEDS: REMERON PO SCH (20:40)
[2020-01-12] MEDS: ATIVAN IV PRN (20:40)
[2020-01-13] MEDS: SYNTHROID PO SCH ×2 (06:04)
[2020-01-13] MEDS: PEPCID PO SCH (12:55)
[2020-01-13] MEDS: CARDIZEM PO SCH ×3 (12:56→20:48)
--- NOTE | 2020-01-13 13:13 | PROGRESS NOTE ---
DATE: 01/13/2020 SUBJECTIVE: Patient with no new complaints. PHYSICAL EXAMINATION: Vital Signs: Reviewed. Temperature 98 degrees, pulse 95 to 105, respiratory rate 20, BP 164/66. General: She is awake, alert. She is in no distress. The patient is pleasant. HEENT: Normocephalic. Neck: Supple. Cardiovascular: Regular rate. Chest: Clear. Abdomen: Soft. Extremities: Moves all extremities. ASSESSMENT: 1. Symptomatic bradycardia, resolved. 2. Hypotension, resolved. 3. DO NOT RESUSCITATE. 4. Dementia. 5. Hypertension. PLAN: We are going to continue the patient in the hospital. We have restarted her Norvasc. I am going to restart Cardizem 30 mg t.i.d. instead of her Cardizem CD 120. Will hold if her heart rate is less than 70 or blood pressure less than 100. Will continue to hold her metoprolol. We will check a screening test for COVID, so hopefully she can return back to her halfway tomorrow. cc: Candido Barrett MD
[2020-01-13] MEDS: NORVASC PO SCH (18:11)
[2020-01-13] MEDS: REMERON PO SCH (20:48)
[2020-01-13] MEDS: ATIVAN IV PRN (21:36)
[2020-01-14] MEDS: SYNTHROID PO SCH ×2 (04:23)
[2020-01-14] MEDS ORDERED: MIRALAX PO SCH (09:00)
[2020-01-14] MEDS: ZOLOFT PO SCH (10:16)
[2020-01-14] MEDS: PEPCID PO SCH (10:16)
[2020-01-14] MEDS: CARDIZEM CD PO SCH (10:16)
--- NOTE | 2020-01-14 13:37 | PROGRESS NOTE ---
DATE: 01/14/2020 SUBJECTIVE: Patient is in no distress. OBJECTIVE: Vitals: Temperature 98, pulse 95, respiratory rate 18, blood pressure 165/66. General: Patient is pleasant. She is calm, lying in the bed with her eyes closed, but awake. HEENT: Normocephalic. Neck: Supple. Cardiovascular: Regular rate. Chest: Clear, nonlabored. Abdomen: Soft. Extremities: Moves all extremities. ASSESSMENT: 1. Severe symptomatic bradycardia. This was likely medication induced as she was on a higher dose of Cardizem and on metoprolol. We are going to restart her Cardizem CD as her heart rates are staying in the 90s. 2. Volume depletion, certainly affected her heart rate as well as her severe hypotension, resolved. 3. Hypertension. Blood pressures are staying elevated. We are going to increase her Cardizem CD and see if this helps. 4. Dementia. 5. Do Not Resuscitate. PLAN: The patient is stable and okay for transfer back to rehab. However, we are waiting for her Coronavirus Disease 2019 (COVID-19) test to be negative before we can do such. cc: Candido Barrett MD
[2020-01-14] MEDS: REMERON PO SCH (20:42)
[2020-01-14] MEDS ORDERED: CALMOSEPTINE OINTMENT TOP PRN (22:36)
[2020-01-15] MEDS: SYNTHROID PO SCH ×2 (04:54)
[2020-01-15] MEDS: PEPCID PO SCH (09:35)
[2020-01-15] MEDS: CARDIZEM CD PO SCH (09:35)
[2020-01-15] MEDS: ZOLOFT PO SCH (09:35)
[2020-01-15 13:39] VITALS: BP 137/67
--- NOTE | 2020-01-15 14:43 | DISCHARGE SUMMARY ---
ADMISSION DATE: 01/09/2020 DISCHARGE DATE: 01/15/2020 ADMISSION DIAGNOSES: 1. Symptomatic bradycardia. 2. Hypotension. 3. Dementia. 4. Previous history of high blood pressure. 5. Do not Resuscitate. DISCHARGE DIAGNOSES: 1. Severe symptomatic bradycardia, likely medication induced, resolved. 2. Hypotension resolved. 3. Hypertension. 4. Dementia. 5. Do not resuscitate. SUMMARY OF FINDINGS: This is an 89-year-old female who resides at [facility] due to chronic dementia, had an episode of syncope, low blood pressure, decreased heart rate and lethargy, who was brought to the emergency room. Her blood pressure was 70/58 with a pulse of 28. After significant discussion with the daughter, she was made a DNR. It was felt that her severe bradycardia was likely medication induced as she was on higher doses of Cardizem and on metoprolol so adjustments were made into that. They restarted her Cardizem CD. Her heart rate is now 88, and blood pressure of 137/67. She was tested at facility request for COVID-19, which was undetected so it is now felt that she can safely be discharged back to rehab. DISCHARGE MEDICATIONS: 1. Cardizem CD 120 mg p.o. daily. 2. Pepcid 20 mg p.o. daily. 3. Mirtazapine 15 mg p.o. at bedtime. 4. MiraLAX 17 g p.o. every other day p.r.n. 5. Sertraline 50 mg p.o. daily. 6. Levothyroxine 125 mcg p.o. daily. 7. Melatonin 5 mg p.o. at bedtime. 8. Senokot S 1 p.o. daily. 9. Tramadol 50 mg p.o. q.6 hours p.r.n. FOLLOWUP: She will follow up with facility physician. TIME SPENT: This is a 35 minute discharge. Dictated by KELLIE cMcall for Yuri Camejo MD Addendum: Patient seen and examined by myself. Agree with KELLIE note. It reflects my assessment and plan. Patient is being discharged in stable condition. Will be seen by PCP in a week. cc: KELLIE Mccall MD [facility]
== END 2020-01-15 16:25 | DRG 310 ==
LOC: P.ED 12:51 → P.MEDSURG 12:52 → SUATTDRO 12:52
PROVIDERS: ATTEND Internal Medicine